=== PATIENT | female | born 1985 | race Caucasian/White ===

== ENCOUNTER 2018-05-04 18:13 | Emergency (ER) | payer OTHER ==
[2018-05-04 18:53] LABS: BASOPHILS % (AUTO) 0.3 %; EOSINOPHILS # (AUTO) 0.1 10^3/uL (0.0-0.7); EOSINOPHILS % (AUTO) 0.7 %; HGB - HEMOGLOBIN 12.3 g/dL (12.0-16.0); LYMPHOCYTES # (AUTO) 2.7 10^3/uL (1.5-3.5); MEAN CORPUSCULAR HEMOGLOBIN 31.2 pg (27.0-31.0); MEAN CORPUSCULAR VOLUME 86.7 fL (81.0-99.0); MONOCYTES # (AUTO) 0.6 10^3/uL (0.0-1.0); MONOCYTES % (AUTO) 5.7 %; NEUTROPHILS # (AUTO) 6.7 10^3/uL (1.5-6.6); NEUTROPHILS % (AUTO) 66.3 %; PLT - PLATELET COUNT 261 10^3/uL (130-450); RED BLOOD COUNT 3.94 10^6/uL (4.20-5.40); RED CELL DISTRIBUTION WIDTH 12.8 % (12.0-15.0); WHITE BLOOD COUNT 10.2 x10^3/uL (4.8-10.8)
--- NOTE | 2018-05-04 19:02 | ED Physician Documentation ---
PD HPI FEMALE - Stated complaint Stated Complaint: FEM /PREG [id number] - Chief complaint Chief Complaint: General - History obtained from History obtained from: Patient - History of Present Illness Timing - onset: How many hours ago (few hours ago, about 1 pm. She had onset of some lower abd cramping and vag bleeding of spot of red blood. This has tapered to rust colored. Still some mild cramps. She is 11 weeks . Has had some mild URI symptoms with congestion and cough. otherwise feeling okay.), Today Timing - duration: Hours Timing - details: Abrupt onset, Still present (but has tapered) Associated symptoms: No: Fever, Genital sore/lesion, Dysuria Contributing factors: Similar symptoms before: Has not had sx before Recently seen: Clinic (had normal OB visit couple weeks ago with U/S showing normal IUP.) Review of Systems Constitutional: denies: Fever, Chills Nose: reports: Congestion Throat: denies: Sore throat Cardiac: denies: Chest pain / pressure Respiratory: reports: Cough. denies: Dyspnea GI: denies: Vomiting, Diarrhea : reports: Vaginal bleeding (just some today). denies: Dysuria, Discharge Skin: denies: Rash PD PAST MEDICAL HISTORY - Past Medical History Past Medical History: No - Past Surgical History HEENT: Tonsil/Adenoidectomy - Present Medications Home Medications: Ambulatory Orders Medication Instructions Recorded Confirmed Benzonatate [Tessalon] 100 mg PO TID PRN #25 capsule 05/04/18 Dexamethasone [Decadron] 4 mg PO DAILY #5 tablet 05/04/18 Loratadine [Claritin] 5 mg PO 05/04/18 Pnv95/Ferrous Fumarate/FA 05/04/18 [ Tablet] raNITIdine [Zantac] 150 mg PO DAILY 05/04/18 05/04/18 - Allergies Allergies/Adverse Reactions: Allergies Allergy/AdvReac Type Severity Reaction Status Date / Time Penicillins Allergy Anaphylaxis Verified 05/04/18 18:19 - Social History Does the pt smoke?: No Smoking Status: Never smoker Does the pt drink ETOH?: No Does the pt have substance abuse?: No - Immunizations Immunizations are current?: Yes PD ED PE NORMAL - Vitals Vital signs reviewed: Yes - General General: Alert and oriented X 3, No acute distress, Well developed/nourished - HEENT HEENT: Ears normal, Pharynx benign - Neck Neck: Supple, no meningeal sign, No adenopathy - Cardiac Cardiac: RRR, No murmur - Respiratory Respiratory: No respiratory distress, Clear bilaterally - Abdomen Abdomen: Soft, Non tender - Female Female : Deferred, Other (bedside U/S showed normal IUP c/w dates and had movement and good FHR. ) - Back Back: No CVA TTP - Derm Derm: Normal color, Warm and dry Results - Vitals Vitals: Vital Signs - 24 hr 05/04/18 18:17 Temperature 36.8 C Heart Rate 88 Respiratory 16 Rate Blood Pressure 131/76 H O2 Saturation 99 Oxygen O2 Source Room air PD MEDICAL DECISION MAKING - ED course Complexity details: reviewed results (bedside U/S showed normal IUP with movement and good heart beat. No free fluid in pelvis. ), considered differential, d/w patient - Sepsis Event Vital Signs: Vital Signs - 24 hr 05/04/18 18:17 Temperature 36.8 C Heart Rate 88 Respiratory 16 Rate Blood Pressure 131/76 H O2 Saturation 99 Oxygen O2 Source Room air Departure - Departure Disposition: 01 Home, Self Care Clinical Impression: Bleeding in early , Cough Condition: Stable Record reviewed to determine appropriate education?: Yes Instructions: ED Bleed Irregular Vaginal Prescriptions: Benzonatate [Tessalon] 100 mg PO TID PRN #25 capsule PRN Reason: Cough Dexamethasone [Decadron] 4 mg PO DAILY #5 tablet Comments: Your urine test is normal. The your ultrasound shows good movement and heart rate. The bleeding and cramping may have come from some of the coughing. For that you can use Robitussin you have at home. You can add Tessalon if needed. Decadron steroid for a few days can help the irritation and reduce coughing as well. Discharge Date/Time: 05/04/18 20:11
[2018-05-04 19:08] LABS: ALBUMIN 3.8 g/dL (3.2-5.5); ALBUMIN/GLOBULIN RATIO 1.2 (1.0-2.2); BILIRUBIN,TOTAL 0.4 mg/dL (0.2-1.0); CREATININE 0.5 mg/dL (0.4-1.0); TOTAL PROTEIN 7.1 g/dL (6.7-8.2)
[2018-05-04] MEDS ORDERED: BENZONATATE 100 MG CAPSULE PO STA (19:27)
[2018-05-04] MEDS ORDERED: DEXAMETHASONE 10 MG/ML VIAL PO STA (19:27)
[2018-05-04] MEDS ORDERED: CHERRY SYRUP 10 ML UDC PO ONE (19:40)
[2018-05-04 19:49] LABS: BILIRUBIN,URINE NEGATIVE (NEGATIVE); GLUCOSE, URINE (UA) NEGATIVE (NEGATIVE); KETONES,URINE (UA) NEGATIVE (NEGATIVE); LEUKOCYTE ESTERASE, URINE NEGATIVE (NEGATIVE); NITRITE,URINE NEGATIVE (NEGATIVE); OCCULT BLOOD,URINE NEGATIVE (NEGATIVE); PROTEIN,URINE NEGATIVE (NEGATIVE); UROBILINOGEN,URINE 0.2 (NORMAL) E.U./dL (NORMAL)
[2018-05-04 19:55] LABS: CLARITY,URINE CLEAR (CLEAR)
[2018-05-04 20:11] VITALS: BP 121/65
== END 2018-05-04 20:11 | disposition home or self-care (01) ==
LOC: ED 18:13
DX: O46.91 Antepartum hemorrhage, unspecified, first trimester (principal); Z3A.11 11 weeks gestation of pregnancy
CPT/HCPCS: 36415; 80053; 81003; 83690; 84702; 85025; 86900; 86901; 99283; A9270; 81001; 87086

== ENCOUNTER 2018-09-14 18:47 | Outpatient (CLI) | payer OTHER ==
[2018-09-14 19:13] VITALS: BP 125/82
[2018-09-14 20:15] LABS: BILIRUBIN,URINE NEGATIVE (NEGATIVE); GLUCOSE, URINE (UA) NEGATIVE (NEGATIVE); KETONES,URINE (UA) TRACE mg/dL (NEGATIVE); LEUKOCYTE ESTERASE, URINE NEGATIVE (NEGATIVE); NITRITE,URINE NEGATIVE (NEGATIVE); OCCULT BLOOD,URINE NEGATIVE (NEGATIVE); PH,URINE 6.5 PH (5.0-7.5); PROTEIN,URINE NEGATIVE (NEGATIVE); UROBILINOGEN,URINE 0.2 (NORMAL) E.U./dL (NORMAL)
[2018-09-14 20:25] LABS: BACTERIA,URINE Many /HPF (None Seen); CLARITY,URINE CLEAR (CLEAR); RBC,URINE None Seen /HPF (0-5); SQUAMOUS EPITHELIAL CELL,UR MANY Squamous (<= Few)
--- NOTE | 2018-09-14 20:59 | PROVIDER PROGRESS NOTE ---
Subjective - Prog Note Date Prog Note Date: 09/14/18 Prog Note Time: 20:49 - Subjective Pt reports feeling: No change Subjective: 33 yo with a 30w6d IUP presented to L&D with complaints of lower abdominal and back pain that began at 4 PM. She is a patient of Dr. Patterson at [facility]. Erinn denied fevers, chills, dysuria, hematuria, flank pain, vaginal bleeding or loss of fluid. The baby girl is moving well. Erinn admits to having coitus earlier today. Erinn's records were not available to me. She states that this has been unremarkable and denies issues with PTL, vaginal bleeding, diabetes or HTN. Her previous deliveries were at term and were only remarkable for precipitous deliveries, within 4 hours for both, and an induction of labor with her second for sciatica. Erinn also recalled she had kidney stones with both previous pregnancies but denies that this discomfort has the same character. On exam, NST reactive and category 1. No decels noted. No contractions were seen. CVE CL/ Thick/ high. UA showed squamous cells. Erinn was discharged to home and instructed to follow up with her OB, Dr. Patterson. PTL precautions. Objective - Vital Signs/Intake & Output Vital Signs: Vital Signs x48h Temp Pulse Resp BP Pulse Ox 09/14/18 19:05 98.6 F 98 16 125/82 H 100 - Lab Results Other Labs: Lab Results x24hrs 09/14/18 Range/Units 20:00 Urine Color YELLOW Urine Clarity CLEAR (CLEAR) Urine pH 6.5 (5.0-7.5) PH Ur Specific [place] 1.015 (1.002-1.030) Urine Protein NEGATIVE (NEGATIVE) mg/dL Urine Glucose (UA) NEGATIVE (NEGATIVE) mg/dL Urine Ketones TRACE (NEGATIVE) mg/dL Urine Occult Blood NEGATIVE (NEGATIVE) Urine Nitrite NEGATIVE (NEGATIVE) Urine Bilirubin NEGATIVE (NEGATIVE) Urine Urobilinogen 0.2 (NORMAL) (NORMAL) E.U./dL Ur Leukocyte Esterase NEGATIVE (NEGATIVE) Urine RBC None Seen (0-5) /HPF Urine WBC 0-3 (0-5) /HPF Ur Squamous Epith Cells MANY Squamous H (<= Few) Urine Bacteria Many H (None Seen) /HPF Urine Culture Comments NOT INDICATED Assessment/Plan - Problem List (1) Pain, abdominal Impression: 33 yo with a 30w6d IUP Abdominal pain. No evidence of PTL or UTI. Also no signs consistent with ureterolithiasis. Reassuring and maternal status. Discharge to home. PTL precautions. Follow up with OB. (2) Pain in back Impression: 33 yo with a 30w6d IUP Abdominal pain. No evidence of PTL or UTI. Also no signs consistent with ureterolithiasis. Reassuring and maternal status. Discharge to home. PTL precautions. Follow up with OB.
== END 2018-09-14 20:57 | disposition home or self-care (01) ==
LOC: WFO 18:47 → FBP 18:49 → WFO 20:57
PROVIDERS: ATTEND Obstetrics & Gynecology
DX: O99.89 Other specified diseases and conditions complicating pregnancy, childbirth and the puerperium (principal); R10.30 Lower abdominal pain, unspecified; M54.5 Low back pain; Z3A.30 30 weeks gestation of pregnancy
CPT/HCPCS: 81001; 87086; 99213

== ENCOUNTER 2021-08-05 08:00 | Outpatient (CLI) | payer OTHER | END 2021-08-05 23:59 | LOC: LAB 08:00 | PROVIDERS: ATTEND Family Medicine | DX: R53.83 Other fatigue (principal); R53.81 Other malaise; R05.9 Cough, unspecified; Z20.822 Contact with and (suspected) exposure to COVID-19 ==